=== PATIENT | female | born 1960 | race Caucasian/White ===

== ENCOUNTER → 2020-11-23 | Outpatient (CLI) | payer BC, OTHER | LOC: KOH-I 11-22 15:30 | DX: J32.9 Chronic sinusitis, unspecified (principal); R51.9 Headache, unspecified; J34.1 Cyst and mucocele of nose and nasal sinus; H70.13 Chronic mastoiditis, bilateral; R93.89 Abnormal findings on diagnostic imaging of other specified body structures | CPT/HCPCS: 70486 ==